=== PATIENT | male | born 1980 | race Caucasian/White ===

== ENCOUNTER 2024-09-01 16:07 | Emergency (ER) | payer OTHER ==
[~2024-09-01] VITALS: Ht 193 cm; Wt 104.4 kg
[2024-09-01 16:12] VITALS: TEMP 98.6
[2024-09-01 19:14] LABS: BASO % 0.1 % (0.0-1.0); EOS # 0.2 10^3/uL (0.0-0.5); EOS % 3.4 % (0.0-3.0); HEMATOCRIT 39.7 % (42.0-52.0); HEMOGLOBIN 12.8 g/dl (13.5-17.5); LYMPH # 1.8 10^3/uL (1.5-5.0); MEAN CORPUSCULAR HEMOGLOBIN 30.3 pg (27.0-33.0); MEAN CORPUSCULAR HGB CONC 32.2 g/dl (32.0-36.5); MEAN CORPUSCULAR VOLUME 94.1 fl (80.0-96.0); MONO # 0.7 10^3/uL (0.0-0.8); MONO % 9.8 % (2.0-8.0); NEUTROPHILS # 4.3 10^3/uL (1.5-8.5); NEUTROPHILS % 61.6 % (36.0-66.0); PLATELET COUNT, AUTOMATED 257 10^3/uL (150-450); RED BLOOD COUNT 4.22 10^6/uL (4.30-6.10)
[2024-09-01 19:22] LABS: ERYTHROCYTE SEDIMENTATION RATE 86 mm/hr (0-15)
[2024-09-01 19:35] LABS: ALBUMIN 3.8 G/DL (3.2-5.2); ALKALINE PHOSPHATASE 69 U/L (40-129); ALT/SGPT 18 U/L (7.0-40); AST/SGOT 18 U/L (<34); BILIRUBIN,TOTAL 0.3 MG/DL (0.3-1.2); BLOOD UREA NITROGEN 18 MG/DL (9-23); C REACTIVE PROTEIN QUANTITATIV 7.04 MG/DL (<1.0); CALCIUM LEVEL 8.6 MG/DL (8.5-10.1); CARBON DIOXIDE LEVEL 27 MMOL/L (20-31); CHLORIDE LEVEL 104 MMOL/L (98-107); CREATININE FOR GFR 0.86 MG/DL (0.70-1.30); GLOMERULAR FILTRATION RATE > 90.0 (>60); GLUCOSE, FASTING 94 MG/DL (60-100); POTASSIUM SERUM 4.1 MMOL/L (3.5-5.1); SODIUM LEVEL 141 MMOL/L (136-145); TOTAL PROTEIN 7.1 G/DL (5.7-8.2)
[2024-09-01 19:38] LABS: URIC ACID 4.2 MG/DL (3.7-9.2)
[2024-09-01] MEDS: SODIUM CHLORIDE NASAL 0.65% SPRAY BTL (OCEAN) PRN (21:29)
[2024-09-01 22:30] VITALS: BP 135/71; O2SAT 97
[2024-09-01 22:30] LABS: RHEUMATOID FACTOR QUANT 15.1 IU/ML (<14)
[2024-09-01] MEDS: predniSONE 20 MG TAB PO ONE (22:40)
[2024-09-01] MEDS ORDERED: PRED20TA PO (22:44)
== END 2024-09-01 22:54 | disposition home or self-care (01) ==
LOC: M ED 16:07
DX: M06.071 Rheumatoid arthritis without rheumatoid factor, right ankle and foot (principal); M25.461 Effusion, right knee
CPT/HCPCS: 36415; 73564; 80053; 84550; 85025; 85652; 86140; 86200; 86431; 93971; 99284; J7512